=== PATIENT | male | born 1955 | race Caucasian/White ===

== ENCOUNTER 2022-12-15 02:06 | Emergency (ER) | payer MEDICARE, OTHER, SELFPAY ==
--- NOTE | 2022-12-15 02:08 | XRR_ITS ---
PROCEDURE INFORMATION: Exam: XR Chest Exam date and time: 12/15/2022 2:26 AM Age: 67 years old Clinical indication: Shortness of breath; Chest pressure; Patient HX: C/O sudden onset of chest pain with SOB and n/v. Recently diagnosed with afib. History of bladder cancer. ; Additional info: Cp TECHNIQUE: Imaging protocol: Radiologic exam of the chest. Views: 1 view. COMPARISON: No relevant prior studies available. FINDINGS: Lungs: Unremarkable. No consolidation. Pleural spaces: Unremarkable. No pleural effusion. No pneumothorax. Heart/Mediastinum: Midline chest pacing type device. No cardiomegaly. Bones/joints: Unremarkable. XR/XR chest 1V portable [id number] IMPRESSION: No acute findings.
[2022-12-15 02:12] VITALS: BP 138/82; PULSE 95; RESP 23; TEMP 36.6; O2SAT 97; BMI 23.4
--- NOTE | 2022-12-15 02:16 | ECG_ITS ---
[facility] Test Date: 2022-12-15 Pat Name: Bib Soto Department: Room: Gender: Male Collaborative Teacher: : 1955 Requested By: Jovan Murry Order Number: [id number] Tay MD: Amado Ellison M.D. Measurements Intervals [place] Rate: 92 P: 70 [place]: 183 QRS: 70 QRSD: 85 T: 66 QT: 353 QTc: 438 Interpretive Statements SINUS RHYTHM POSSIBLE RIGHT VENTRICULAR CONDUCTION DELAY [RSR (QR) IN V1/V2] No previous ECG available for comparison Electronically Signed On 12-15-2022 14:49:37 CDT by Amado Ellison M.D. [email or web address] [email or web address] Steed Studiouniversity hospitals [facility].Hoopla/store/OM/[id number]
[2022-12-15] MEDS: aspirin 81 mg Chew Tablet 324 MG PO (02:25)
--- NOTE | 2022-12-15 02:29 | ED_ITS ---
HPI - Chest Pain General: Chief Complaint: Chest Pain Stated Complaint: Chest Pains Time Seen by Provider: 12/15/22 02:09 Source: patient Mode of arrival: ambulatory Limitations: no limitations History of Present Illness: 67-year-old male who states that he started having some abdominal cramping at midnight started having severe diarrhea he states started having some vomiting at 1 AM he states that 30 minutes prior to arrival he is having some slight chest discomfort as a burning pain. He states that that is since resolved he still is having the vomiting and diarrhea he has a history of A-fib he denies any fever denies any worsening proving factors. Associated symptoms: Reports abdominal pain, nausea and vomiting; Deny dyspnea or fever(s) Review of Systems Const: Denies: fever(s), chills or body aches ENMT: Denies: throat pain or dental pain Card: Reports: chest pain Resp: Denies: dyspnea GI: Reports: abdominal pain, nausea, vomiting and diarrhea : Denies: dysuria Musc: Denies: neck pain or back pain Skin/Breast: Denies: rash Neuro: Denies: headache(s) Psych: Denies: depression Nikolai/Lymph: Denies: easy bruising All/Imm: Denies: urticaria PFSH ED PFSH: Medical History (Updated 12/15/22 @ 05:07 by Jovan Murry MD) Atrial fibrillation Social History (Updated 12/15/22 @ 02:31 by Jovan Murry MD) Substance/Drug Use: never Physical Exam Const: COMMON NORMALS: no acute distress, patient oriented x3 and healthy appearing HENMT: COMMON NORMALS: normocephalic and atraumatic HEAD & SCALP: normocephalic and atraumatic Eye: COMMON NORMALS: conjunctivae normal CONJUNCTIVA: Yes conjunctivae normal Neck/C-Spine: COMMON NORMALS: supple Chest: COMMONS NORMALS: normal inspection of the chest and normal palpation of entire chest wall Resp: COMMON NORMALS: normal respiratory effort, No retractions, No use of accessory muscles and clear to auscultation bilaterally AUSCULTATION: clear to auscultation bilaterally Cardio: COMMON NORMALS: regular rate, regular rhythm and No murmurs present (Cardio) RATE: regular rate RHYTHM: regular rhythm GI: COMMON NORMALS: Normal to inspection, nondistended, normoactive bowel sounds present, Soft to palpation, non-tender and no masses PALPATION: Yes Soft to palpation Extremity: COMMON NORMALS: normal to inspection and full ROM Neuro: COMMON NORMALS: patient oriented x3, moves all extremities and no focal motor deficits Psych: COMMON NORMALS: mental status grossly normal, Normal thought process present and cooperative THOUGHT PROCESS: Normal thought process present Skin: COMMON NORMALS: no rashes or lesions noted and no wounds GENERAL SKIN EXAM: no rashes or lesions noted Course Vital Signs: Vital signs: Vital Signs Temperature 97.8 F 12/15/22 02:12 Pulse Rate 99 12/15/22 05:32 Respiratory Rate 12 12/15/22 05:32 Blood Pressure 129/73 12/15/22 05:32 Pulse Oximetry 96 12/15/22 05:32 Oxygen Delivery Me thod Room Air 12/15/22 02:12 MDM - Chest Pain Medical Decision Making Patient presents here with vomiting diarrhea is likely a food poisoning or gastroenteritis his symptoms have completely resolved here after IV fluids and Zofran his first troponin back is normal believe his pain was actually more of a esophagitis from vomiting no signs of acute coronary syndrome he is stable for discharge he is to follow-up with PCP and return if worsening. Medical Records I reviewed the patient's medical records. Lab Data I reviewed the patient's lab results. 12/15/22 02:40 12/15/22 02:40 Radiology Impressions Chest X-Ray 12/15/22 02:08 IMPRESSION: No acute findings. Laboratory Results WBC 10.7 10^3/uL (4.0-10.0) H 12/15/22 02:40 RBC 5.76 10^6/uL (4.1-5.3) H 12/15/22 02:40 Hgb 17.0 g/dL (11.7-16.6) H 12/15/22 02:40 Hct 51.2 % (42.0-52.0) 12/15/22 02:40 MCV 88.9 fl (80-94) 12/15/22 02:40 MCH 29.5 pg (28.0-34.0) 12/15/22 02:40 MCHC 33.2 g/dL (30.0-36.0) 12/15/22 02:40 RDW 13.1 % (12.1-15.1) 12/15/22 02:40 Plt Count 228 10^3/cmm (130-400) 12/15/22 02:40 MPV 10.7 fL (7.4-10.4) H 12/15/22 02:40 Neut % (Auto) 91.6 % 12/15/22 02:40 Lymph % (Auto) 3.1 % 12/15/22 02:40 [place] % (Auto) 4.2 % 12/15/22 02:40 Eos % (Auto) 0.5 % 12/15/22 02:40 Baso % (Auto) 0.4 % 12/15/22 02:40 Neut # (Auto) 9.77 10^3/uL (1.8-7.7) H 12/15/22 02:40 Lymph # (Auto) 0.3 10^3/uL (0.8-4.8) L 12/15/22 02:40 [place] # (Auto) 0.5 10^3/uL (0.2-0.9) 12/15/22 02:40 Eos # (Auto) 0.1 10^3/uL (0.0-0.8) 12/15/22 02:40 Baso # (Auto) 0.0 10^3/uL (0.0-0.1) 12/15/22 02:40 Nucleated RBC % (auto) 0 % 12/15/22 02:40 Nucleated RBCs # 0.0 /100WBC 12/15/22 02:40 PT 13.00 SECONDS (12.1-14.9) 12/15/22 02:40 INR 0.96 (0.8-1.2) 12/15/22 02:40 Sodium 139 mmol/L (136-145) 12/15/22 02:40 Potassium 3.5 mmol/L (3.5-5.1) 12/15/22 02:40 Chloride 102 mmol/L (98-107) 12/15/22 02:40 Carbon Dioxide 20 mmol/L (22-29) L 12/15/22 02:40 Anion Gap 20.5 (5-19) H 12/15/22 02:40 BUN 15 mg/dL (8-23) 12/15/22 02:40 Creatinine 1.1 mg/dL (0.7-1.2) 12/15/22 02:40 GFR Calculation 66.6 mL/min (90-130) L 12/15/22 02:40 Glucose 145 mg/dL (65-115) H 12/15/22 02:40 Calculated Osmolality 291 mOsm/kg (285-295) 12/15/22 02:40 Calcium 9.3 mg/dL (8.5-10.5) 12/15/22 02:40 Total Bilirubin 1.2 mg/dL (0.15-1.2) 12/15/22 02:40 AST 18 U/L (0-40) 12/15/22 02:40 ALT 18 U/L (0-41) 12/15/22 02:40 Alkaline Phosphatase 60 U/L (40-130) 12/15/22 02:40 Troponin T Baseline 10 ng/L (0-15) 12/15/22 02:40 Total Protein 7.2 g/dL (6.6-8.7) 12/15/22 02:40 Albumin 4.5 g/dL (3.5-5.2) 12/15/22 02:40 Globulin 2.7 g/dL (1.3-4.6) 12/15/22 02:40 Lipase 29 U/L (13-60) 12/15/22 02:40 EKG Data EKG 1: I personally reviewed and interpreted this EKG as follows: EKG interpretation date: 12/15/22 EKG interpretation time: 02:16 Interpretation: nsr hr [address] or t wave abnormalities qrs 85 qtc 403 Discharge Plan Discharge Patient Disposition: Home Clinical Impression: Vomiting, Atypical chest pain, Diarrhea Prescriptions: New ondansetron 4 mg tablet,disintegrating 4 mg PO Q6H PRN (Reason: nausea and vomiting) Qty: 14 0RF No Action dofetilide 250 mcg capsule levothyroxine 25 mcg tablet Discharge Orders: Discharge ED (Routine); Ordered 12/15/22 Ordered By: Jovan Murry Discharge Diet: Advance as tolerated Discharge Activity: Resume usual activity Patient Instructions: Diarrhea - Adult, Acute Nausea and Vomiting (ED) Coding Level of Care Code ED High School Biology Teacher for Ryann Monsalve
[2022-12-15 02:50] LABS: Basophils % 0.4 %; Eosinophils # 0.1 10^3/uL (0.0-0.8); Eosinophils % 0.5 %; Hematocrit 51.2 % (42.0-52.0); Lymphocytes # 0.3 10^3/uL (0.8-4.8); Lymphocytes % 3.1 %; Mean Corpuscular HGB Conc 33.2 g/dL (30.0-36.0); Mean Corpuscular Hemoglobin 29.5 pg (28.0-34.0); Mean Corpuscular Volume 88.9 fl (80-94); Mean Platelet Volume 10.7 fL (7.4-10.4); Monocytes # 0.5 10^3/uL (0.2-0.9); Monocytes % 4.2 %; Neutrophils # 9.77 10^3/uL (1.8-7.7); Neutrophils % 91.6 %; Nucleated Red Blood Cells % 0 %; Platelet Count 228 10^3/cmm (130-400); Red Blood Count 5.76 10^6/uL (4.1-5.3); Red Cell Distribution Width 13.1 % (12.1-15.1); White Blood Count 10.7 10^3/uL (4.0-10.0)
[2022-12-15] MEDS: ondansetron 2 mg/ML SDV 2 mL 4 MG IVP (02:55)
[2022-12-15] MEDS: sodium chloride 0.9% 1,000 ML 999 ML IV (02:55)
[2022-12-15] MEDS: diphenoxylate/atropine Tablet 1 TAB PO (02:56)
[2022-12-15 03:04] LABS: INR 0.96 (0.8-1.2)
[2022-12-15 03:09] LABS: Troponin(5th) Baseline 10 ng/L (0-15)
[2022-12-15 03:10] LABS: Alanine Aminotransferase 18 U/L (0-41); Albumin Level 4.5 g/dL (3.5-5.2); Alkaline Phosphatase 60 U/L (40-130); Anion Gap 20.5 (5-19); Aspartate Amino Transferase 18 U/L (0-40); Blood Urea Nitrogen 15 mg/dL (8-23); Calcium 9.3 mg/dL (8.5-10.5); Carbon Dioxide 20 mmol/L (22-29); Chloride 102 mmol/L (98-107); Globulin 2.7 g/dL (1.3-4.6); Glomerular Filtration Rate 66.6 mL/min (90-130); Glucose 145 mg/dL (65-115); Lipase 29 U/L (13-60); Osmolality Calculated 291 mOsm/kg (285-295); Potassium 3.5 mmol/L (3.5-5.1); Sodium 139 mmol/L (136-145); Total Bilirubin 1.2 mg/dL (0.15-1.2); Total Protein 7.2 g/dL (6.6-8.7)
[2022-12-15 05:32] VITALS: BP 129/73; PULSE 99; RESP 12; O2SAT 96
--- NOTE | 2022-12-18 11:58 | DCPLANNER ---
telesales manager called patient due to no primary care physician - no answer at this time.
== END 2022-12-15 05:16 | disposition home or self-care (01) ==
PROVIDERS: Emergency Provider Emergency Medicine
DX: R07.89 Other chest pain (principal); R19.7 Diarrhea, unspecified; R11.11 Vomiting without nausea
CPT/HCPCS: 71045; 80053; 83690; 84484; 85025; 85610; 93005; 96374; 96375; 99285; J2405; J7030

== ENCOUNTER → 2023-05-06 15:10 | Outpatient (BNVA) | payer MEDICARE, OTHER, SELFPAY | PROVIDERS: Visit Provider Internal Medicine | DX: I48.91 Unspecified atrial fibrillation (principal); E03.9 Hypothyroidism, unspecified; Z79.890 Hormone replacement therapy | CPT/HCPCS: 36415; 84439; 84443; 99204 ==

== ENCOUNTER 2023-06-07 13:30 | Emergency (ER) | payer MEDICARE, OTHER, SELFPAY ==
[2023-06-07 13:37] VITALS: BP 144/94; PULSE 93; RESP 17; TEMP 36.8; O2SAT 97; BMI 24.4
--- NOTE | 2023-06-07 13:52 | W.ED.GENADLT ---
HPI - General Adult General: Chief complaint: General Medical Stated complaint: injured chest from dog Time Seen by Provider: 06/07/23 13:36 Source: patient Mode of arrival: ambulatory History of Present Illness: 68-year-old male presents emergency room with complaint of chest pain after being hit in the left chest by his dog yesterday. He states his dog is approximately 80 pound Cost[place] jay mix. He did not fall he did not strike his head there is no loss consciousness he is complaining of some shortness of breath and chest discomfort when he inhales since this happened. Onset (ago): day(s) (1) Pain Consistency: constant Relieving factors: immobilization Exacerbating factors: movement and other (Inspiration or palpation) Associated symptoms: Reports chest pain; Deny confusion, cough, diaphoresis, decreased appetite, dyspnea, fevers/chills, headache(s), malaise, nausea, rash, palpitations, seizures, short of breath, syncope, vomiting or weakness Treatments prior to arrival: none Review of Systems Const: Denies: fever(s), chills, malaise or diaphoresis Card: Reports: chest pain; Denies: palpitations or syncope Resp: Denies: dyspnea GI: Denies: abdominal pain, nausea or vomiting : Denies: dysuria, urinary frequency or urinary urgency Musc: Denies: neck pain or back pain Skin/Breast: Denies: rash Neuro: Denies: headache(s) or confusion [facility] ED PFSH: Medical History Atrial fibrillation Social History Substance/Drug Use: never Physical Exam Const: GENERAL APPEARANCE: cooperative and comfortable ORIENTATION/CONSCIOUSNESS: Yes awake, Yes oriented to person, Yes oriented to place and Yes oriented to time HENMT: COMMON NORMALS: normocephalic, atraumatic and hearing grossly normal bilaterally HEAD & SCALP: normocephalic and atraumatic Chest: OTHER: Chest wall pain on the left anterior axillary line inferiorly on the lower ribs Resp: COMMON NORMALS: normal respiratory effort, No retractions, No use of accessory muscles and clear to auscultation bilaterally AUSCULTATION: clear to auscultation bilaterally Cardio: COMMON NORMALS: regular rate, regular rhythm and No murmurs present (Cardio) RATE: regular rate RHYTHM: regular rhythm GI: COMMON NORMALS: Soft to palpation and No hepatosplenomegaly present AUSCULTATION: Yes normoactive bowel sounds PALPATION: Yes Soft to palpation, No Tenderness to palpation present (GI), No Guarding due to palpation present (GI) and Yes No hepatosplenomegaly present Extremity: COMMON NORMALS: normal to inspection, capillary refill normal, no clubbing, cyanosis or edema, no calf tenderness and no pedal edema Neuro: SENSORIUM/ORIENTATION: Yes oriented to person, Yes oriented to place and Yes oriented to time Skin: COMMON NORMALS: no rashes or lesions noted GENERAL SKIN EXAM: no rashes or lesions noted Course Vital Signs: Vital signs: Vital Signs Temperature 98.2 F 06/07/23 13:37 Pulse Rate 93 06/07/23 13:37 Respiratory Rate 17 06/07/23 13:37 Blood Pressure 144/94 06/07/23 13:37 Pulse Oximetry 97 06/07/23 13:37 Oxygen Delivery Me thod Room Air 06/07/23 13:37 MDM - General Adult Medical Decision Making No acute fractures on rib x-ray. Discharge patient home with tramadol to use as needed. Ice as needed follow-up as needed return if is worsening or change symptoms. Medical Records I reviewed the patient's medical records. XR interpretation done by ED provider, pending radiology final review Discharge Plan Discharge Patient Disposition: Home Clinical Impression: Rib pain on left side Condition: Stable Prescriptions: New tramadol 50 mg tablet 50 mg PO Q6H PRN (Reason: pain) Qty: 15 0RF No Action aspirin 325 mg Tablet 325 mg PO QAM levothyroxine 25 mcg tablet See Rx Instructions .ROUTE .COMPLEX Rx Instructions: Take 25 mcg orally daily except take 2 tablets (50mcg) on Sat and Sun. dofetilide 250 mcg capsule 250 mcg PO BID Discharge Orders: Discharge ED (Routine); Ordered 06/07/23 Ordered By: Luis Galvan Referrals: Bhaskar Castaneda MD [Primary Care Provider] - Discharge Diet: Usual diet Discharge Activity: Increase activity as tolerated Patient Instructions: Rib Contusion (ED), Opioid Safety, Pain Management Coding Level of Care Code ED Joiner for Chg Gricel
--- NOTE | 2023-06-07 13:57 | XRR_ITS ---
PROCEDURE INFORMATION: Exam: XR Left Ribs with PA Chest Exam date and time: 06/07/2023 1:58 PM Age: 68 years old Clinical indication: Injury or trauma; Other: Hit in chest by dog; Rib area, left side; Blunt trauma; Injury details: Hit in left chest by dog. Left side pain; Patient HX: HX of bladder cancer TECHNIQUE: Imaging protocol: Radiologic exam of the left ribs with PA chest. Views: 3 views COMPARISON: CR XR chest 1V portable [id number] 12/15/2022 2:26 AM FINDINGS: Lungs: Unremarkable. No consolidation. Pleural spaces: Unremarkable. No pleural effusion. No pneumothorax. Heart/Mediastinum: Unremarkable. No cardiomegaly. Bones/joints: Unremarkable. XR/XR ribs LT mn 3V w CXR1V [id number] IMPRESSION: No acute findings.
[2023-06-07] MEDS: ketorolac 30 mg/mL INJ IM (14:07)
== END 2023-06-07 15:32 | disposition home or self-care (01) ==
PROVIDERS: Emergency Provider Family Medicine; PCP Family Medicine
DX: R07.81 Pleurodynia (principal); Z79.82 Long term (current) use of aspirin
CPT/HCPCS: 71101; 96372; 99284; J1885

== ENCOUNTER 2023-09-07 08:32 | Emergency (ER) | payer MEDICARE, OTHER, SELFPAY ==
[2023-09-07 08:52] VITALS: BP 133/70; PULSE 66; RESP 18; TEMP 36.6; O2SAT 96; BMI 22.3
--- NOTE | 2023-09-07 08:55 | XR_ITS ---
WS: [id number] PORTABLE CHEST HISTORY: dyspnea/cough COMPARISON: 06/07/2023 Lungs are clear and well expanded. No pleural effusion or pneumothorax. Cardiac size: Normal. Mediastinum/Aorta: Normal mediastinum. No osseous abnormality seen. IMPRESSION: Unremarkable portable chest.
--- NOTE | 2023-09-07 09:07 | ECG_ITS ---
[facility] Test Date: 2023-09-07 Pat Name: Bib Soto Department: Room: Gender: Male [employer]: : 1955 Requested By: Luis Landin Order Number: [id number] Tay MD: Gloria Schilling M.D. Measurements Intervals [place] Rate: 63 P: -48 [place]: 186 QRS: 56 QRSD: 98 T: 55 QT: 446 QTc: 457 Interpretive Statements ECTOPIC ATRIAL RHYTHM INCOMPLETE RIGHT BUNDLE BRANCH BLOCK [90+ ms QRS DURATION, TERMINAL R IN V1/V2, 40+ ms S IN I/aVL/V4/V5/V6] ABNORMAL RHYTHM ECG Compared to ECG 12/15/2022 02:16:00 Ectopic atrial rhythm now present Incomplete right bundle-branch block now present Sinus rhythm no longer present Electronically Signed On 09-07-2023 21:38:21 INSTRUCTIONAL DESIGN MANAGER by Gloria Schilling M.D. [id number]
--- NOTE | 2023-09-07 09:12 | ED_ITS ---
HPI - Nausea/Vomiting/Diarrhea 2 General: Chief complaint: Nausea/Vomiting/Diarrhea Stated complaint: N/D Time Seen by Provider: 09/07/23 08:55 Source: patient Mode of arrival: ambulatory History of Present Illness: 68-year-old male presents emergency room with complaint of diarrhea. No hematochezia or melena he has had loose foul-smelling stools for the last couple days a lot of abdominal pain and cramping. No fever sweats or chills he related to some food that he ate no other family members in the house have been ill. MD elicited complaint: diarrhea Description of vomiting: watery and foul-smelling Associated nausea: No Associated abdominal pain: Yes Location of pain: Periumbilical Severity: mild Quality: cramping Exacerbating factors: none Relieving factors: none Associated symtoms: Denies altered mental status, anxiety, bloating, change in vision, chest pain, cough, diaphoresis, decreased urine output, dizziness, dysuria, epistaxis, fatigue, fecal incontinence, fevers/chills, headache(s), anorexia, malaise, myalgias, nausea, numbness, palpitations, rash, short of breath, syncope, tenesmus, tinnitus or weakness Review of Systems 2 Const: Denies: fatigue, malaise or diaphoresis Eyes: Denies: change in vision ENMT: Denies: tinnitus or epistaxis Card: Denies: chest pain, palpitations or syncope Resp: Denies: dyspnea GI: Denies: nausea, bloating or fecal incontinence : Denies: dysuria Musc: Denies: neck pain or back pain Skin/Breast: Denies: rash Neuro: Denies: headache(s) or dizziness Psych: Denies: anxiety PFSH ED 2 PFSH: Medical History Atrial fibrillation Social History Substance/Drug Use: never Physical Exam 2 Const: COMMON NORMALS: no acute distress EXAM LIMITATIONS: no altered mental status GENERAL APPEARANCE: cooperative and comfortable O RIENTATION/CONSCIOUSNESS: Yes awake, Yes oriented to person, Yes oriented to place and Yes oriented to time HENMT: COMMON NORMALS: normocephalic, atraumatic and hearing grossly normal bilaterally HEAD & SCALP: normocephalic and atraumatic Resp: COMMON NORMALS: normal respiratory effort, No retractions, No use of accessory muscles and clear to auscultation bilaterally AUSCULTATION: clear to auscultation bilaterally Cardio: COMMON NORMALS: regular rate, regular rhythm and No murmurs present (Cardio) RATE: regular rate RHYTHM: regular rhythm GI: COMMON NORMALS: Soft to palpation and No hepatosplenomegaly present A USCULTATION: Yes normoactive bowel sounds PALPATION: Yes Soft to palpation, No Tenderness to palpation present (GI), No Guarding due to palpation present (GI) and Yes No hepatosplenomegaly present Extremity: COMMON NORMALS: normal to inspection, capillary refill normal, no clubbing, cyanosis or edema, no calf tenderness and no pedal edema Neuro: SENSORIUM/ORIENTATION: Yes oriented to person, Yes oriented to place and Yes oriented to time Skin: COMMON NORMALS: no rashes or lesions noted GENERAL SKIN EXAM: no rashes or lesions noted Course 2 Vital Signs: Vital signs: Vital Signs Temperature 97.8 F 09/07/23 08:52 Pulse Rate 65 09/07/23 10:42 Respiratory Rate 16 09/07/23 10:42 Blood Pressure 119/72 09/07/23 10:42 Pulse Oximetry 97 09/07/23 10:42 Oxygen Delivery Me thod Room Air 09/07/23 10:42 MDM - Nausea/Vomiting/Diarrhea Medical Decision Making CT shows signs of colitis suspicious for diverticulitis. Given the patient's clinical presentation I suspect he does have diverticulitis will start on Cipro and Flagyl ondansetron to use as needed. Clinical diet for 48 hours then advance as tolerated. Follow-up with primary care doctor. Patient states he has had a colonoscopy in the last few years with no significant abnormality. Medical Records I reviewed the patient's medical records. Lab Data I reviewed the patient's lab results. 09/07/23 09:13 09/07/23 09:13 Laboratory Results WBC 3.22 10^3/uL (3.29-11.43) L 09/07/23 09:13 RBC 4.86 10^6/uL (3.85-5.65) 09/07/23 09:13 Hgb 14.60 g/dL (11.27-16.99) 09/07/23 09:13 Hct 43.5 % (37-53) 09/07/23 09:13 MCV 89.5 fl (82-101) 09/07/23 09:13 MCH 30.0 pg (27-33) 09/07/23 09:13 MCHC 33.6 g/dL (30-55) 09/07/23 09:13 RDW 13.0 % (12.1-15.1) 09/07/23 09:13 Plt Count 175 10^3/cmm (157-399) 09/07/23 09:13 MPV 10.4 fL (7.4-10.4) 09/07/23 09:13 Lymph % (Auto) Not Reportable 09/07/23 09:13 [place] % (Auto) Not Reportable 09/07/23 09:13 Lymph # (Auto) Not Reportable 09/07/23 09:13 [place] # (Auto) Not Reportable 09/07/23 09:13 Total Counted 100 (0-100) 09/07/23 09:13 Atypical Lymphs % 6.0 % (0-5) H 09/07/23 09:13 Absolute Neutrophils 2.2 10^3/cmm (1.4-6.5) 09/07/23 09:13 Segmented Neutrophils 62 % 09/07/23 09:13 Abs Segm Neuts (Man) 2.0 10/cmm (1.6-7.1) 09/07/23 09:13 Band Neutrophils 6.0 % 09/07/23 09:13 Abs Band Neuts (Man) 0.2 10^3/cmm (0.0-1.2) 09/07/23 09:13 Absolute Lymphocytes 0.8 10^3/cmm (1.2-3.4) L 09/07/23 09:13 Lymphocytes (Manual) 19 % 09/07/23 09:13 Monocytes (Manual) 6.0 % 09/07/23 09:13 Absolute Monocytes 0.2 10^3/cmm (0.1-0.6) 09/07/23 09:13 Eosinophils (Manual) 0 % 09/07/23 09:13 Absolute Eosinophils 0.0 10^3/cmm (0.0-0.7) 09/07/23 09:13 Basophils (Manual) 0.0 % 09/07/23 09:13 Absolute Basophils 0.0 10^3/cmm (0.0-0.2) 09/07/23 09:13 Metamyelocytes 1.0 % 09/07/23 09:13 Platelet Estimate Normal (Normal) 09/07/23 09:13 Sodium 138 mmol/L (136-145) 09/07/23 09:13 Potassium 3.6 mmol/L (3.5-5.1) 09/07/23 09:13 Chloride 106 mmol/L (98-107) 09/07/23 09:13 Carbon Dioxide 21 mmol/L (22-29) L 09/07/23 09:13 Anion Gap 14.6 (5-19) 09/07/23 09:13 BUN 9 mg/dL (8-23) 09/07/23 09:13 Creatinine 0.9 mg/dL (0.7-1.2) 09/07/23 09:13 GFR Calculation 83.7 mL/min (90-130) L 09/07/23 09:13 Glucose 114 mg/dL (65-115) 09/07/23 09:13 Calculated Osmolality 286 mOsm/kg (285-295) 09/07/23 09:13 Calcium 9.0 mg/dL (8.5-10.5) 09/07/23 09:13 Total Bilirubin 0.8 mg/dL (0.15-1.2) 09/07/23 09:13 AST 16 U/L (0-40) 09/07/23 09:13 ALT 12 U/L (0-41) 09/07/23 09:13 Alkaline Phosphatase 61 U/L (40-130) 09/07/23 09:13 Total Protein 6.4 g/dL (6.6-8.7) L 09/07/23 09:13 Albumin 3.9 g/dL (3.5-5.2) 09/07/23 09:13 Globulin 2.5 g/dL (1.3-4.6) 09/07/23 09:13 SARS-CoV-2 Ag (Rapid) negative (Negative) 09/07/23 09:16 All radiology interpretation(s) finalized by discharge Discharge Plan Discharge Patient Disposition: Home Clinical Impression: Diverticulitis Condition: Stable Prescriptions: New ondansetron HCl 4 mg tablet 4 mg PO Q6H PRN (Reason: nausea and vomiting) Qty: 20 0RF Cipro 500 mg tablet 500 mg PO BID Qty: 14 0RF metronidazole 500 mg tablet 500 mg PO BID 7 Days Qty: 14 0RF No Action levothyroxine 25 mcg tablet See Rx Instructions .ROUTE .COMPLEX Qty: 180 0RF Rx Instructions: continue 1 tablet 25 mcg Wednesday till Wednesday, take 2 tablets Wednesday and Wednesday aspirin 325 mg Tablet 325 mg PO QAM dofetilide 250 mcg capsule 250 mcg PO BID Vitamin C 250 mg Tablet 250 mg PO DAILY vitamin E 268 mg (400 unit) Capsule 268 mg PO DAILY Vitamin D3 25 mcg (1,000 unit) Capsule 25 mcg PO EVERY OTHER DAY Discharge Orders: Discharge ED (Routine); Ordered 09/07/23 Ordered By: Luis Galvan Referrals: Bhaskar Castaneda MD [Primary Care Provider] - Discharge Diet: Clear Liquid Discharge Activity: Increase activity as tolerated Patient Instructions: Diverticulitis (ED), Opioid Safety, Pain Management Activity Restrictions/Additional Instructions: Thank you for choosing [facility] for your healthcare needs today. Please realize this is an emergency room and that we are providing you with a medical screening exam and this may not be complete and all inclusive of all the testing and or work up that you may need to determine your ailment or severity of your illness. It is very important that you follow up as instructed or that you return to the Emergency Department should you have concerns or if your condition changes or worsens in any way. Coding Level of Care Code ED Window Air Conditioner Installer for Ryann Monsalve
[2023-09-07 09:20] LABS: Hematocrit 43.5 % (37-53); Mean Corpuscular HGB Conc 33.6 g/dL (30-55); Mean Corpuscular Volume 89.5 fl (82-101); Mean Platelet Volume 10.4 fL (7.4-10.4); Platelet Count 175 10^3/cmm (157-399); Red Blood Count 4.86 10^6/uL (3.85-5.65); White Blood Count 3.22 10^3/uL (3.29-11.43)
--- NOTE | 2023-09-07 09:22 | CT_ITS ---
WS: [id number] CT ABDOMEN PELVIS TECHNIQUE: Contrast-enhanced CT of the abdomen and pelvis with coronal and sagittal reformatted image s. CLINICAL INFORMATION: abd pain COMPARISON: None. DLP: 499.[address] scans at [facility] use at least one of these dose optimization techniques: automated e xposure control; mA and/or kV adjustment per patient size (includes targeted exams where dose is matc hed to clinical indication); or iterative reconstruction. FINDINGS: Mild thickening and enhancement involving the transverse colon, splenic flexure, and LEFT descending colon extending to the sigmoid colon suspicious for colitis or diverticulitis. A few scattered small diverticuli. No free fluid in the abdomen or pelvis. No other suspicious findings. Diffuse fatty infiltration of the liver. Mild hepatomegaly. Normal spleen. Normal GE junction. Lung b ases are well aerated. Fluid distended gallbladder. No gallbladder wall thickening or pericholecystic fluid. Normal GE junction. Prior cystoprostatectomy with ileal conduit. Stoma appears patent. Normal pancreatic parenchymal enha ncement. Normal portal vein and splenic vein. Tiny LEFT adrenal adenoma. Normal renal parenchymal enh ancement. No hydronephrosis. IMPRESSION: 1. Findings suspicious for infectious or inflammatory colitis or diverticulitis as described above. 2. No drainable abscess or fluid collection. 3. Prior cystoprostatectomy with ileal conduit. Stoma appears patent. 4. Mild diffuse fatty infiltration of the liver. Notified Luis Galvan DO at 09/07/2023 10:26 AM.
[2023-09-07 09:38] LABS: SARS Covid-2 Antigen negative (Negative)
[2023-09-07 09:39] LABS: Alanine Aminotransferase 12 U/L (0-41); Albumin Level 3.9 g/dL (3.5-5.2); Alkaline Phosphatase 61 U/L (40-130); Anion Gap 14.6 (5-19); Aspartate Amino Transferase 16 U/L (0-40); Blood Urea Nitrogen 9 mg/dL (8-23); Carbon Dioxide 21 mmol/L (22-29); Chloride 106 mmol/L (98-107); Globulin 2.5 g/dL (1.3-4.6); Glomerular Filtration Rate 83.7 mL/min (90-130); Glucose 114 mg/dL (65-115); Osmolality Calculated 286 mOsm/kg (285-295); Potassium 3.6 mmol/L (3.5-5.1); Sodium 138 mmol/L (136-145); Total Bilirubin 0.8 mg/dL (0.15-1.2); Total Protein 6.4 g/dL (6.6-8.7)
[2023-09-07] MEDS: ondansetron 2 mg/ML SDV 2 mL 4 MG IVP (09:49)
[2023-09-07 10:07] LABS: Slide Review Slide Review Perform
[2023-09-07 10:08] LABS: Absolute Neutrophil 2.2 10^3/cmm (1.4-6.5); Band Neutrophils Absolute 0.2 10^3/cmm (0.0-1.2); Eosinophils 0 %; Lymphocytes 19 %; Lymphocytes Absolute 0.8 10^3/cmm (1.2-3.4); Monocytes Absolute 0.2 10^3/cmm (0.1-0.6); Platelet Estimate Normal (Normal); Segmented Neutrophils 62 %; Total Cells Counted 100 (0-100)
[2023-09-07 10:42] VITALS: BP 119/72; PULSE 65; RESP 16; O2SAT 97
[2023-09-07] MEDS: iohexol 350 mg/mL 500 mL Btl (per mL) IV (10:58)
== END 2023-09-07 11:09 | disposition home or self-care (01) ==
PROVIDERS: Emergency Provider Family Medicine; PCP Family Medicine
DX: K57.92 Diverticulitis of intestine, part unspecified, without perforation or abscess without bleeding (principal); Z79.82 Long term (current) use of aspirin; Z11.52 Encounter for screening for COVID-19
CPT/HCPCS: 71045; 74177; 80053; 85007; 85025; 87426; 93005; 96374; 99285; J2405; Q9967

== ENCOUNTER → 2023-11-25 10:46 | Outpatient (BNVA) | payer MEDICARE, OTHER, SELFPAY | PROVIDERS: PCP Family Medicine; Visit Provider Internal Medicine | DX: E03.9 Hypothyroidism, unspecified (principal); I48.91 Unspecified atrial fibrillation; Z79.890 Hormone replacement therapy | CPT/HCPCS: 36415; 84439; 84443; 99214 ==

== ENCOUNTER → 2024-05-29 10:45 | Outpatient (BNVA) | payer MEDICARE, OTHER, SELFPAY | PROVIDERS: PCP Family Medicine; Visit Provider Internal Medicine | DX: E03.9 Hypothyroidism, unspecified (principal); I48.91 Unspecified atrial fibrillation; Z79.890 Hormone replacement therapy | CPT/HCPCS: 84439; 84443; 99214 ==

== ENCOUNTER → 2024-12-15 11:39 | Outpatient (BNVA) | payer MEDICARE, OTHER, SELFPAY | PROVIDERS: PCP Family Medicine; Visit Provider Internal Medicine | DX: I48.91 Unspecified atrial fibrillation (principal) | CPT/HCPCS: 36415; 84439; 84443 ==

== ENCOUNTER 2025-04-12 23:07 | Emergency (ER) | payer MEDICARE, OTHER, SELFPAY ==
--- NOTE | 2025-04-12 23:08 | ECG_ITS ---
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
[2025-04-12 23:11] VITALS: BP 132/84; PULSE 87; RESP 17; TEMP 36.4; O2SAT 98; BMI 24.4
--- OUTSIDE RECORDS SUMMARY | 2025-04-12 23:14 | XMS_ITS | Patient Health Record ---
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 Driver Examiner Name Role Phone Bello Gal[place] Primary Care Provider Allergies Allergen (clinical drug ingredient) Drug/Non Drug Allergy documented on EMR Reaction Allergy Type Onset Date Status valproate Depakote Unknown Drug Allergy Active morphine Morphine Unknown Drug Allergy Active Reason For Referral No Information Medications Medication SIG (Take, Route, Frequency, Duration) Notes Start Date End Date Status Vitamin E 180 MG (400 UNIT) Capsule 1 capsule Orally Once a day Active Vitamin C 500 MG Capsule as directed Orally Active Dofetilide 250 MCG Capsule 1 capsule Ora lly Twice a day Active Levothyroxine Sodium 25 MCG Tablet 1 tablet in the morning on an empty stomach Orally Once a day Active Probiotic & Acidophilus Ex St - Capsule as directed Orally Active Aspirin 325 MG Tablet 1 tablet Orally On ce a day Active Vitamin D 50 MCG (2000 UT) Tablet 1 tablet Orally Once a day Active Social History Tobacco Use: Social History Observation Description Date Details (start date - stop date) Never Smoker NA - NA Social History Drugs/Alcohol: Social Info Question Answer Notes Drugs Have you used drugs other than those for medical reasons in the past 12 months? Yes Marijuana? Yes Drug/Alcohol: Social Info Question Answer Notes AUDIT-C (Standard) Did you have a drink containing alcohol in the past year? No Points 0 Interpretation Negative Tobacco Use: Social Info Question Answer Notes Tobacco Control (Standard) Tobacco use: Nonsmoker Problems Problem Type SNOMED Code ICD Code Onset Dates Problem Status W/U Status Risk Notes Problem Screening for malignant neoplasm of colon (635524644) Screen for colon cancer (Z12.11) Active confirmed Problem Diverticular disease of colon (939727964) Diverticulosis (K57.90) Active confirmed Problem Diverticulitis of colon (077977419) Diverticulitis of intestine without perforation or abscess without bleeding, unspecified part of intestinal tract (K57.92) Active confirmed Plan Of Treatment No Information Insurance Providers Payer Name Payer Address Payer Phone Subscriber Number Group Number Insured Name Patient Relationship to Insured Coverage Start Date [place] Date [place] [address] [address] [place] [phone] [id number] BOTTOMS JASMIN Self - patient is the insured [place] of [address] [phone] [id number] BOTTOMJASMIN Harrison Self - patient is the insured Medical (General) History Medical History History ICD Code Bladder Cancer hyperthyroidism a fib covid Surgical History Surgery Date(Month/Year) hernia repair bladder surgery 2020
[2025-04-12 23:36] LABS: Hematocrit 45.8 % (37-53); Hemoglobin 15.30 g/dL (11.27-16.99); Mean Corpuscular HGB Conc 33.4 g/dL (30-55); Mean Corpuscular Hemoglobin 29.0 pg (27-33); Mean Corpuscular Volume 86.7 fl (82-101); Nucleated Red Blood Cells % 0 %; Platelet Count 223 10^3/cmm (157-399); Red Blood Count 5.28 10^6/uL (3.85-5.65); White Blood Count 8.17 10^3/uL (3.29-11.43)
--- NOTE | 2025-04-12 23:46 | W.ED.ARRPALP ---
HPI - Arrhythmia/Palpitations General: Chief Complaint: Arrhythmia/Palpitations Stated Complaint: heart is pausing SOB cardiac pt Time Seen by Provider: 04/12/25 23:22 History of Present Illness: Patient with past bladder cancer s/p cystectomy and urostomy (dx 2019, surgery 2020) developed paroxysmal AF in 2021. Episodes previously ran 130?140 bpm; ED visit in [place] led to IV Cardizem and transient asystole requiring transfer to [facility] under care of Dr Quinonez. Maintained sinus rhythm for most of the past year on the antiarrhythmic flecainide (exact dosing unclear). In February 2023 AF recurred intermittently; for the last > 48 h rhythm has remained AF with rates 110?120 bpm (peak ~140). Symptoms: marked fatigue, sense of internal ?marathon,? occasional light-headedness during 3?4 s sinus pauses. Denies chest pressure, shortness of breath, caffeine, alcohol, or illicit drug use. Good hydration; minor recent psychosocial stress. No fever, dysuria, or [id number] symptoms; prior February urine culture negative. Unable to take systemic anticoagulation because of chronic urostomy wound; on aspirin only. Presented tonight because of worsening fatigue and sustained tachyarrhythmia. Related Data Home Medications ?Medication ?Instructions ?Recorded ?Confirmed dofetilide 250 mcg capsule 250 mcg PO BID 12/15/22 12/14/24 aspirin 325 mg tablet 325 mg PO QAM 06/07/23 12/14/24 ascorbic acid (vitamin C) 250 mg 250 mg PO DAILY 09/07/23 12/14/24 tablet (Vitamin C) cholecalciferol (vitamin D3) 25 25 mcg PO EVERY OTHER DAY 09/07/23 12/14/24 mcg (1,000 unit) capsule (Vitamin D3) vitamin E 268 mg (400 unit) capsule 268 mg PO DAILY 09/07/23 12/14/24 Previous Rx's ?Medication ?Instructions ?Recorded ciprofloxacin HCl 500 mg tablet 500 mg PO BID #14 tabs 09/07/23 (Cipro) ondansetron HCl 4 mg tablet 4 mg PO Q6H PRN nausea and 09/07/23 vomiting #20 tabs levothyroxine 25 mcg tablet See Rx Instructions .Route 03/07/25 .COMPLEX #120 tabs Allergies Allergy/AdvReac Type Severity Reaction Status Date / Time diltiazem (From Cardizem) Allergy Severe Unresponsiv Verified 12/14/24 16:53 e divalproex sodium (From Allergy Severe ALGY-Anaphy Verified 12/14/24 16:53 Depakote) laxis morphine Allergy Intermediate ADR-Vomitin Verified 12/14/24 16:53 g PFSH ED PFSH: Medical History (Updated 04/13/25 @ 02:38 by Bal Flores MD) Atrial fibrillation Social History Smoking and tobacco/nicotine status: never used tobacco/nicotine Substance/Drug Use: never Physical Exam Const: COMMON NORMALS: no acute distress, patient oriented x3 and alert HENMT: COMMON NORMALS: normocephalic and atraumatic HEAD & SCALP: normocephalic and atraumatic Eye: COMMON NORMALS: Equal, round and reactive pupils present, EOMs intact bilaterally and no scleral icterus PUPIL: Yes Equal, round and reactive pupils present Chest: OTHER: Irregularly irregular, tachycardic heart. Resp: COMMON NORMALS: normal respiratory effort and No retractions GI: COMMON NORMALS: Normal to inspection, nondistended, normoactive bowel sounds present, Soft to palpation and non-tender PALPATION: Yes Soft to palpation Neuro: COMMON NORMALS: patient oriented x3 SENSORIUM/ORIENTATION: Yes alert Skin: COMMON NORMALS: no rashes or lesions noted GENERAL SKIN EXAM: no rashes or lesions noted Course Vital Signs: Vital signs: Vital Signs Temperature 97.5 F L 04/12/25 23:11 Pulse Rate 99 04/13/25 05:04 Respiratory Rate 15 04/13/25 05:04 Blood Pressure 154/104 04/13/25 05:04 Pulse Oximetry 99 04/13/25 05:04 Oxygen Delivery Me thod Room Air 04/13/25 00:14 MDM - Arrhythmia/Palpitations Medical Decision Making In summary, patient is a generally well-appearing 69-year-old male with history of paroxysmal atrial fibrillation who has been in atrial fibrillation with RVR for roughly 2 days. BNP is mildly elevated but otherwise troponin and labs are unremarkable. I spoke with a member of his cardiology team at [facility] who did not recommend any acute changes. Heart rate remains roughly 110 at rest. 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 for recommendations knowing that he is always welcome back in the emergency department if symptoms get worse before then Lab Data 04/12/25 23:30 04/12/25 23:30 Laboratory Results WBC 8.17 10^3/uL (3.29-11.43) 04/12/25 23:30 RBC 5.28 10^6/uL (3.85-5.65) 04/12/25 23: Hgb 15.30 g/dL (11.27-16.99) 04/12/25 23:30 Hct 45.8 % (37-53) 04/12/25 23: MCV 86.7 fl (82-101) 04/12/25: MCH 29.0 pg (27-33) 04/12/25: MCHC 33.4 g/dL (30-55) 04/12/25: RDW 13.0 % (12.1-15.1) 04/12/25: Plt Count 223 10^3/cmm (157-399) 04/12/25: MPV 10.6 fL (7.4-10.4) H 04/12/25: Neut % (Auto) 54.8 % 04/12/25: Lymph % (Auto) 32.2 % 04/12/25: [place] % (Auto) 10.4 % 04/12/25:30 Eos % (Auto) 1.7 % 04/12/25: Baso % (Auto) 0.7 % 04/12/25: Neut # (Auto) 4.47 10^3/uL (1.8-7.7) 04/12/25: Lymph # (Auto) 2.6 10^3/uL (0.8-4.8) 04/12/25: [place] # (Auto) 0.9 10^3/uL (0.2-0.9) 04/12/25 23:30 Eos # (Auto) 0.1 10^3/uL (0.0-0.8) 04/12/25: Baso # (Auto) 0.1 10^3/uL (0.0-0.1) 04/12/25 23:30 Nucleated RBC % (auto) 0 % 04/12/25 23: Nucleated RBCs # 0.0 /100WBC 04/12/25 23: PT 12.60 SECONDS (12.1-14.9) 04/12/25 23:30 INR 0.88 (0.8-1.2) 04/12/25 23: APTT 27.0 SECONDS (23.9-36.7) 04/12/25 23:30 Sodium 139 mmol/L (136-145) 04/12/25 23:30 Potassium 4.2 mmol/L (3.5-5.1) 04/12/25 23: Chloride 104 mmol/L (98-107) 04/12/25: Carbon Dioxide 21 mmol/L (22-29) L 04/12/25 23: Anion Gap 18.2 (5-19) 04/12/25 23:30 BUN 17 mg/dL (8-23) 04/12/25 23:30 Creatinine 0.8 mg/dL (0.7-1.2) 04/12/25 23:30 GFR Calculation 95.6 mL/min (90-130) 04/12/25 23: Glucose 108 mg/dL (65-115) 04/12/25 23:30 Calculated Osmolality 290 mOsm/kg (285-295) 04/12/25 23:30 Calcium 9.2 mg/dL (8.5-10.5) 04/12/25 23:30 Total Bilirubin 0.4 mg/dL (0.15-1.2) 04/12/25 23:30 AST 14 U/L (0-40) 04/12/25 23:30 ALT 13 U/L (0-41) 04/12/25 23:30 Alkaline Phosphatase 71 U/L (40-130) 04/12/25 23:30 Troponin T Baseline 11 ng/L (0-15) 04/12/25 23:30 Troponin T 120 Minute 9.49 ng/L (0-15) 04/13/25 01:39 Delta Troponin T -1.51 ABS# (0-10) L 04/13/25 01:39 NT-Pro-B Natriuret Pep 1323 pg/mL (0-125) H 04/12/25 23:30 Total Protein 6.6 g/dL (6.6-8.7) 04/12/25 23:30 Albumin 4.4 g/dL (3.5-5.2) 04/12/25 23:30 Globulin 2.2 g/dL (1.3-4.6) 04/12/25 23:30 TSH 7.76 uIU/mL (0.27-4.20) H 04/12/25 23:30 Urine Color Yellow (Yellow) 04/13/25 01:00 Urine Appearance Clear (CLEAR) 04/13/25 01:00 Urine pH 6.5 (5-7) 04/13/25 01:00 Ur Specific [place] 1.005 (1.005-1.030) 04/13/25 01:00 Urine Protein Negative (Negative) 04/13/25 01:00 Urine Glucose (UA) Negative (Normal) 04/13/25 01:00 Urine Ketones Negative (Negative) 04/13/25 01:00 Urine Blood 1+ (Negative) A 04/13/25 01:00 Urine Nitrate Negative (Negative) 04/13/25 01:00 Urine Bilirubin Negative (Negative) 04/13/25 01:00 Urine Urobilinogen 0.2 mg/dL (Negative) 04/13/25 01:00 Ur Leukocyte Esterase 1+ (Negative) A 04/13/25 01:00 Urine RBC 0-4 /hpf (0-2) H 04/13/25 01:00 Urine WBC 5-10 /hpf (0-5) H 04/13/25 01:00 Ur Squamous Epith Cells None /hpf (0-5) 04/13/25 01:00 Amorphous Sediment Not Reportable 04/13/25 01:00 Urine Bacteria None /hpf (NONE) 04/13/25 01:00 All radiology interpretation(s) finalized by discharge EKG Data EKG 1: Interpretation: Time?2316?atrial fibrillation with RVR, rate of 121, infrequent PVCs, no ST segment elevation or depression, no T wave inversions, QTc = 400. Discharge Plan Discharge Patient Disposition: Home Clinical Impression: Atrial fibrillation Condition: Stable Prescriptions: No Action levothyroxine 25 mcg tablet See Rx Instructions .ROUTE .COMPLEX Qty: 120 2RF Dose Instruction: TAKE 1 TABLET BY MOUTH EVERY DAY Rx Instructions: TAKE 1 TABLET BY mouth doroteo through wednesday; then take 2 pills by mouth wednesday and wednesday aspirin 325 mg Tablet 325 mg PO QAM dofetilide 250 mcg capsule 250 mcg PO BID Vitamin C 250 mg Tablet 250 mg PO DAILY vitamin E 268 mg (400 unit) Capsule 268 mg PO DAILY Vitamin D3 25 mcg (1,000 unit) Capsule 25 mcg PO EVERY OTHER DAY ondansetron HCl 4 mg tablet 4 mg PO Q6H PRN (Reason: nausea and vomiting) Qty: 20 0RF Cipro 500 mg tablet 500 mg PO BID Qty: 14 0RF Discharge Orders: Discharge ED (Routine); Ordered 04/13/25 Ordered By: Bal Flores Referrals: Bhaskar Castaneda MD [Primary Care Provider, Family Practice] Discharge Diet: Usual diet Discharge Activity: Increase activity as tolerated Patient Instructions: A-fib (Atrial Fibrillation) (ED), Patient Portal & [facility] Instructions Activity Restrictions/Additional Instructions: Please continue to take your Tikosyn as prescribed and call your jewelry sales coordinator to see whether they would like to augment your medications. There is no evidence of heart attack, infection, or other abnormality requiring hospitalization or further workup at this time. 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
[2025-04-12 23:58] LABS: INR 0.88 (0.8-1.2); Prothrombin Time 12.60 SECONDS (12.1-14.9)
[2025-04-12 23:59] LABS: Partial Thromboplastin Time 27.0 SECONDS (23.9-36.7)
[2025-04-13 00:01] LABS: Troponin(5th) Baseline 11 ng/L (0-15)
[2025-04-13 00:10] LABS: Alanine Aminotransferase 13 U/L (0-41); Albumin Level 4.4 g/dL (3.5-5.2); Alkaline Phosphatase 71 U/L (40-130); Aspartate Amino Transferase 14 U/L (0-40); Blood Urea Nitrogen 17 mg/dL (8-23); Calcium 9.2 mg/dL (8.5-10.5); Carbon Dioxide 21 mmol/L (22-29); Chloride 104 mmol/L (98-107); Creatinine Clr Calc Pharmacy 93.4933; Globulin 2.2 g/dL (1.3-4.6); Glucose 108 mg/dL (65-115); NT Pro B Type Natriuretic Pept 1323 pg/mL (0-125); Osmolality Calculated 290 mOsm/kg (285-295); Sodium 139 mmol/L (136-145); Total Protein 6.6 g/dL (6.6-8.7)
[2025-04-13 00:13] LABS: Anion Gap 18.2 (5-19); Potassium 4.2 mmol/L (3.5-5.1)
[2025-04-13 00:14] VITALS: BP 131/101; PULSE 109; RESP 12; O2SAT 96
[2025-04-13 00:32] LABS: Thyroid Stimulating Hormone 7.76 uIU/mL (0.27-4.20)
[2025-04-13 01:00] VITALS: BP 148/90; PULSE 114; RESP 12; O2SAT 95
[2025-04-13 01:08] LABS: Glucose Urine UA Negative (Normal); Nitrate Urine Negative (Negative); Specific Gravity, Urine 1.005 (1.005-1.030)
[2025-04-13 01:21] LABS: UA Manual Slide Review YES
[2025-04-13 02:00] VITALS: BP 146/117; PULSE 107; RESP 22; O2SAT 97
[2025-04-13 02:06] LABS: Troponin 5 2HR 9.49 ng/L (0-15)
[2025-04-13 02:07] LABS: Troponin 5 2HR Delta -1.51 ABS# (0-10)
[2025-04-13 05:04] VITALS: BP 154/104; PULSE 99; RESP 15; O2SAT 99
== END 2025-04-13 02:57 | disposition home or self-care (01) ==
PROVIDERS: Emergency Provider Student in an Organized Health Care Education/Training Program; PCP Family Medicine
DX: I48.91 Unspecified atrial fibrillation (principal); Z79.82 Long term (current) use of aspirin
CPT/HCPCS: 36415; 80053; 81001; 83880; 84443; 84484; 85025; 85610; 85730; 93005; 99284

== ENCOUNTER → 2025-06-15 11:13 | Outpatient (BNVA) | payer MEDICARE, OTHER, SELFPAY | PROVIDERS: PCP Family Medicine; Visit Provider Internal Medicine | DX: I48.91 Unspecified atrial fibrillation (principal); E03.9 Hypothyroidism, unspecified | CPT/HCPCS: 36415; 84439; 84443; 99214 ==